=== PATIENT | female | born 1945 | race Caucasian/White ===

== ENCOUNTER → 2016-06-15 | Outpatient (CLI) | payer MEDICARE | LOC: GMAL 11:32 | PROVIDERS: ATTEND Family Medicine | DX: E83.49 Other disorders of magnesium metabolism (principal) ==

== ENCOUNTER → 2016-12-20 | Outpatient (CLI) | payer MEDICARE | END | disposition home or self-care (01) | LOC: GMAL 10:44 | PROVIDERS: ATTEND Family Medicine | DX: D51.3 Other dietary vitamin B12 deficiency anemia (principal); E03.9 Hypothyroidism, unspecified; E55.9 Vitamin D deficiency, unspecified ==

== ENCOUNTER 2017-04-23 11:31 | Emergency (ER) | payer MEDICARE ==
[2017-04-23] MEDS ORDERED: SODIUM CHLORIDE 0.9% (FLUSH) 10 ML SYG IV PRN (11:40)
[2017-04-23] MEDS ORDERED: ASPIRIN TABLET 325 MG TAB PO ONE (11:40)
[2017-04-23] MEDS ORDERED: ASPIRIN (CHEWABLE) 81 MG TAB PO ONE (11:42)
--- NOTE | 2017-04-23 12:19 | ED.PDOC ---
History of Present Illness - General Chief Complaint: Chest Pain/LA Stated Complaint: chest pain Time Seen by Provider: 04/23/17 11:40 Source: patient Exam Limitations: no limitations - History of Present Illness Initial Comments: Lashae Churchill 71 y/o female Brought by POV to er with both upper extremities been achy since yesterday then today with dull ache left side chest and neck tightness.Stated was on her computer this morning checking [employer] and also under lots of stress with who has AD.Has pacemaker 1 1/2 years ago put in for syncopal episode. Timing/Duration: 4-6 hours Severity: moderate Location: other - left side Activities at Onset: rest Prior Chest Pain/Cardiac Workup: no prior chest pain, echocardiography Improving Factors: nothing Worsening Factors: nothing Nitro Today/Relief: 0.4 mg x 1, provided by ED Aspirin Treatment Today: 81 mg x 4, provided by ED Associated Symptoms: other - see hpi Allergies/Adverse Reactions: Allergies NO KNOWN ALLERGY Allergy (Verified 04/23/17 11:57) Home Medications: Ambulatory Orders Aspirin 81 mg PO DAILY #0 03/31/13 Isosorbide Dinitrate 20 mg PO BID #0 03/31/13 Potassium Chloride [K-Tab] 20 meq PO .AM 07/30/15 Levothyroxine Sodium [Synthroid] 0.125 mg PO DAILY #30 tab 07/31/15 Amlodipine Besylate-Benazepril [Lotrel 5-10 mg] 1 cap PO DAILY 08/15/15 Potassium Chloride [K-Tab] 10 meq PO NOON 08/15/15 Potassium Chloride [K-Tab] 20 meq PO BEDTIME 08/15/15 Bisoprolol Fumarate [Zebeta] 2.5 mg PO DAILY 04/23/17 Gabapentin 100 mg PO BID 04/23/17 Nitroglycerin 0.4 mg Tab [Nitrostat] 0.4 mg SL .Q5M PRN #1 bttl 04/23/17 Triamterene & Hydrochlorothiaz [Triamterene/Hydrochloroth 75-50 mg] 1 tab PO DAILY 04/23/17 Review of Systems - Review of Systems Constitutional: States: no symptoms reported EENTM: States: no symptoms reported Respiratory: States: no symptoms reported Cardiology: States: see HPI Gastrointestinal/Abdominal: States: no symptoms reported Genitourinary: States: no symptoms reported Musculoskeletal: States: no symptoms reported Skin: States: no symptoms reported Past Medical History (General) - Patient Medical History Hx Seizures: No Hx Stroke: No Hx Asthma: No Hx of COPD: No Hx Cardiac Disorders: Yes - angina Hx Congestive Heart Failure: No Hx Pacemaker: Yes Hx Hypertension: Yes Hx Thyroid Disease: Yes Hx Diabetes: No Hx MRSA: No Surgical History: pacemaker - Vaccination History Hx Tetanus, Diphtheria Vaccination: No Hx Influenza Vaccination: Yes Hx Pneumococcal Vaccination: No - Social History Hx Tobacco Use: No Hx Alcohol Use: Yes - wine Hx Substance Use: No Hx Substance Use Treatment: No Hx Depression: No Hx Physical Abuse: No Hx Emotional Abuse: No Hx Suspected Abuse: No - Activities of Daily Living Grooming Ability: Independent Eating (Feeding) Ability: Independent Toileting Ability: Independent - Female History Patient is a Female of Child Bearing Age (10 -59 yrs old): No Family Medical History - Family History Mother Family History: Unknown Living Status: Unknown Hx Cardiac Disease: Yes - dad Hx Family Cancer: Yes - larynx-mom Physical Exam - Physical Exam General Appearance: Alert, Comfortable, No apparent distress Eyes, Ears, Nose, Throat Exam: PERRL/EOMI, normal ENT inspection Neck: non-tender, full range of motion, supple Respiratory: chest non-tender, lungs clear, normal breath sounds Cardiovascular/Chest: normal peripheral pulses, regular rate, rhythm, no murmur Peripheral Pulses: radial,right: 2+, radial,left: 2+ Gastrointestinal/Abdominal: normal bowel sounds, non tender, soft, no organomegaly Extremity: no pedal edema, no calf tenderness Neurologic: alert, normal mood/affect, oriented x 3 Skin Exam: normal color, warm/dry Lymphatic: no adenopathy Progress - Progress Progress: 04/23/17 13:20 Vital Signs - 8 hr 04/23/17 04/23/17 04/23/17 11:35 12:15 12:56 Temperature 98.7 F 97.6 F Pulse Rate [ 68 64 68 pulse ox] Respiratory 20 16 16 Rate Blood Pressure 122/89 120/78 121/78 [Right Arm] O2 Sat by Pulse 98 95 95 Oximetry 04/23/17 14:26 Laboratory Tests 04/23/17 04/23/17 04/23/17 11:42 11:46 13:18 WBC 7.6 RBC 5.17 Hgb 15.0 Hct 45.1 MCV 87.2 MCH 29.1 MCHC 33.4 RDW 13.5 Plt Count 174 MPV 9.4 Absolute Neuts (auto) 5.10 Absolute Lymphs (auto) 1.80 Absolute Monos (auto) 0.60 Absolute Eos (auto) 0.10 Absolute Basos (auto) 0.10 Neutrophils % 66.3 Lymphocytes % 23.7 Monocytes % 7.6 Eosinophils % 1.6 Basophils % 0.8 PT 10.6 INR 0.940 PTT (SP) 33.7 D-Dimer, Quantitative < 200 Sodium 137 Potassium 3.5 L Chloride 101 Carbon Dioxide 26 Anion Gap 13.5 BUN 11 Creatinine 0.83 BUN/Creatinine Ratio 13.3 Random Glucose 123 H Serum Osmolality 274.6 L Calcium 9.4 Magnesium 2.0 Total Bilirubin 0.6 Direct Bilirubin < 0.1 Indirect Bilirubin 0.5 AST 22 ALT 20 Alkaline Phosphatase 71 Creatine Kinase 98 CK-MB (CK-2) 3.5 CK-MB (CK-2) % Not Reportable Troponin I < 0.02 < 0.02 B-Natriuretic Peptide 16.2 Serum Total Protein 7.7 Albumin 4.5 04/23/17 14:28 Chest pain free recommend hospital obs stated she lives close to hospital with son living across her house wants to go home and ff up with md 04/23/17 14:33 Relayed result of cardiac enzyme test initially negative x 2 - EKG/XRAY/CT EKG: Sinus Comments: HR- 72;bifascicular block XRAY: chest - mild cardiomegaly,tortous aorta;lungs clear Departure - Departure Clinical Impression: Chest pain Qualifiers: Chest pain type: unspecified Qualified Code(s): R07.9 - Chest pain, unspecified Time of Disposition: 14:30 Disposition: Discharge to Home or Self Care Condition: Fair Departure Forms: ED Discharge - Pt. Copy, Patient Portal Self Enrollment Instructions: DI for Chest Pain Referrals: Tristan Vargas III, MD [Primary Care Provider] - 1-2 Weeks Prescriptions: Nitroglycerin 0.4 mg Tab [Nitrostat] 0.4 mg SL .Q5M PRN #1 bttl PRN Reason: Chest Pain Home Medications: Ambulatory Orders Aspirin 81 mg PO DAILY #0 03/31/13 Isosorbide Dinitrate 20 mg PO BID #0 03/31/13 Potassium Chloride [K-Tab] 20 meq PO .AM 07/30/15 Levothyroxine Sodium [Synthroid] 0.125 mg PO DAILY #30 tab 07/31/15 Amlodipine Besylate-Benazepril [Lotrel 5-10 mg] 1 cap PO DAILY 08/15/15 Potassium Chloride [K-Tab] 10 meq PO NOON 08/15/15 Potassium Chloride [K-Tab] 20 meq PO BEDTIME 08/15/15 Bisoprolol Fumarate [Zebeta] 2.5 mg PO DAILY 04/23/17 Gabapentin 100 mg PO BID 04/23/17 Nitroglycerin 0.4 mg Tab [Nitrostat] 0.4 mg SL .Q5M PRN #1 bttl 04/23/17 Triamterene & Hydrochlorothiaz [Triamterene/Hydrochloroth 75-50 mg] 1 tab PO DAILY 04/23/17 Additional Instructions: RETURN TO EMERGENCY ROOM NEEDED;Follow up with primary md for referral to modeling agency manager as needed;Continue with all home medications
--- NOTE | 2017-04-23 12:31 | RAD ---
Study: Single Frontal View of the Chest. Indication:chest pain Comparison: August 16, 2015. Impression: New dual lead right pacemaker. Mild cardiomegaly. Thoracic aorta tortuous. Lungs hyperexpanded but clear. Osteopenia. If this is a new finding, DEXA scan recommended as well as evaluation for possible osteoporosis treatment. Electronically signed by: Valentín Stone MD 04/23/2017 12:30 PM [facility]
[2017-04-23 12:57] VITALS: TEMP 97.6
[2017-04-23 14:51] VITALS: BP 118/72; O2SAT 96
== END 2017-04-23 14:50 | disposition home or self-care (01) ==
LOC: ER 11:31
DX: R07.9 Chest pain, unspecified (principal); I45.2 Bifascicular block; I10 Essential (primary) hypertension; E07.9 Disorder of thyroid, unspecified; Z95.0 Presence of cardiac pacemaker; Z79.82 Long term (current) use of aspirin; Z79.899 Other long term (current) drug therapy

== ENCOUNTER → 2017-06-19 | Outpatient (CLI) | payer MEDICARE | END | disposition home or self-care (01) | LOC: GMAL 10:46 | PROVIDERS: ATTEND Family Medicine | DX: D51.3 Other dietary vitamin B12 deficiency anemia (principal) ==

== ENCOUNTER → 2017-12-05 | Outpatient (CLI) | payer MEDICARE ==
--- NOTE | 2017-12-05 08:55 | RAD ---
EXAM DESCRIPTION: Pelvis CLINICAL HISTORY: 72 years Female, HIP PAIN LEFT COMPARISON: None. FINDINGS: Single view of the pelvis demonstrates the bony pelvic ring intact hypertrophic changes at the acetabular margins, left greater than right consistent with modest hip arthropathy again left greater than right is apparent. Subcortical cystic changes particularly involving the left hip and likely a more significantly in the acetabula of the femoral head is noted. If symptoms persist consider MRI of the left hip evaluate for osteonecrosis without femoral head collapse or other arthritic processes. No fracture or dislocation is seen. The pubic arches and the ischio tuberosities are intact. IMPRESSION: Bilateral hip degenerative arthropathy and hypertrophic acetabular osteophytes, left greater than right. Electronically signed by: Emmanuel Patricio MD 12/05/2017 8:54 AM CDT
== END ==
LOC: RAD 08:09
PROVIDERS: ATTEND Orthopaedic Surgery
DX: Z01.818 Encounter for other preprocedural examination (principal); M25.552 Pain in left hip; M13.851 Other specified arthritis, right hip; M13.852 Other specified arthritis, left hip

== ENCOUNTER → 2017-12-06 | Outpatient (CLI) | payer MEDICARE | LOC: GMAB 11:46 | PROVIDERS: ATTEND Family Medicine | DX: Z01.818 Encounter for other preprocedural examination (principal); R30.0 Dysuria; E03.9 Hypothyroidism, unspecified; Z79.899 Other long term (current) drug therapy ==

== ENCOUNTER → 2017-12-14 | Outpatient (CLI) | payer MEDICARE | LOC: GMAL 10:58 | PROVIDERS: ATTEND Family Medicine | DX: R25.8 Other abnormal involuntary movements (principal) ==

== ENCOUNTER 2018-01-01 05:47 | Day surgery (SDC) | payer MEDICARE ==
--- NOTE | 2017-12-21 09:25 | HP ---
CHIEF COMPLAINT: Left knee pain. HISTORY OF PRESENT ILLNESS: Ms. Churchill is a 72-year-old female with a history of knee pain. The knee pain has been associated with mechanical symptoms to include locking and popping. She has had no trauma related to the onset of this , denies any radiation of pain and denies any neurologic symptoms. She has had injections, however, have failed to give her relief. Because of her failure of relief and mechanical symptoms, we have discussed options. She does have pre- existent arthritis and I talked to her about knee arthroscopy and the fact that given her mechanical symptoms, this may help, however, will not change her baseline arthritis. She expressed understanding of that. After discussing the risks, benefits and alternatives to that, the patient has given informed consent. PAST SURGICAL HISTORY: 1. Thyroidectomy. 2. section. 3. Pacemaker placement. 4. Foot surgery. MEDICATIONS: 1. Amlodipine. 2. Benazepril. 3. Potassium. 4. Isosorbide. 5. Bisoprolol. 6. Levothyroxine. 7. Triamterene. 8. Hydrochlorothiazide. 9. Singulair. 10. Xanax. ALLERGIES: NO KNOWN DRUG ALLERGIES. CODE STATUS: DNR. IMMUNIZATIONS: Up to date. FAMILY HISTORY: None pertinent to today's complaint. SOCIAL HISTORY: The patient does not smoke or use any illicit drugs. She does drink on occasion. REVIEW OF SYSTEMS: Negative except as indicated in the History of Present Illness. PHYSICAL EXAMINATION: VITAL SIGNS: Blood pressure 125/81. Pulse 87. Height 5'5". Weight 138 pounds. MENTAL STATUS: The patient is awake, alert, and is able to give a good history and participate in the physical. The patient is oriented to person, place and time. SKIN: Normal tone and turgor. MUSCULOSKELETAL: She is very tender to palpation along the medial aspect of the knee and also with patellar mobilization. She has popping with flexion and extension and some crepitus. She has no varus/valgus or anterior/posterior laxity. She does have mild effusion today. The extremity is warm and well perfused. Today, she lacks a couple of degrees of extension although flexion is to about 130 degrees. Strength is 5/5 throughout. IMAGING: X-rays do show arthritic changes. There does not appear to be any acute bony abnormality. There may be a couple of loose bodies in the medial compartment. ASSESSMENT: 1. Meniscus tear with mechanical symptoms. 2. Loose bodies in the knee. 3. Osteoarthritis. PLAN: The plan at this point is for knee arthroscopy. We have discussed the risks, benefits, and alternatives to that and the patient has given informed consent. #[id number] [facility]
[2018-01-01] MEDS ORDERED: SODIUM CHL 0.9% 100ML MINI-BAG 100 ML IVPB ONE (05:55)
[2018-01-01] MEDS ORDERED: LACTATED RINGERS 1,000 ML ONE (05:55)
[2018-01-01] MEDS ORDERED: ceFAZolin SODIUM 1 GM VIAL ONE ×3 (05:56→07:48)
[2018-01-01] MEDS ORDERED: BUPIVACAINE 0.25% W/EPI 50 ML VIAL INJ ONE (06:22)
[2018-01-01] MEDS ORDERED: MIDAZOLAM INJ 2 MG/2 ML VIAL ONE (06:48)
[2018-01-01] MEDS ORDERED: MORPHINE SULFATE INJ 10 MG/ML VIAL ONE (06:49)
[2018-01-01] MEDS: VANCOMYCIN HCL INJ 1,000 MG VIAL IVPB ONE ×2 (07:32→07:52)
[2018-01-01] MEDS: ceFAZolin SODIUM 1 GM VIAL ONE ×2 (07:32→07:52)
[2018-01-01 09:26] VITALS: BP 127/81; TEMP 96.8; O2SAT 98
[2018-01-01] MEDS ORDERED: raNITIdine HCL INJ 25 MG/ML VIAL IV ONE (10:00)
[2018-01-01] MEDS ORDERED: PROPOFOL 200 MG/20 ML VIAL IV ONE (10:00)
[2018-01-01] MEDS ORDERED: KETOROLAC TROMETHAMINE INJ 30 MG/ML VIAL IV ONE (10:00)
[2018-01-01] MEDS ORDERED: LIDOCAINE 1% 10 ML VIAL INJ ONE (10:00)
[2018-01-01] MEDS ORDERED: ePHEDrine SULF 50 MG/ML IV ONE (10:00)
[2018-01-01] MEDS ORDERED: DEXAMETHASONE INJ 10 MG/ML VIAL IV ONE (10:00)
--- NOTE | 2018-01-02 08:44 | OP ---
DATE OF PROCEDURE: 01/01/18 PREOPERATIVE DIAGNOSIS: 1. Knee pain. 2. Arthritis. 3. Meniscus tear. 4. Loose body. POSTOPERATIVE DIAGNOSIS: 1. Advanced arthritis. 2. Multiple loose bodies. 3. Meniscal tearing. 4. Knee pain. PROCEDURE: 1. Removal of loose bodies. 2. Debridement. 3. Partial meniscectomy. SURGEON: Mazin Rosenbaum MD. VISCOSE DEPARTMENT WORKER: Sandro Cuellar CST, SA-C. ANESTHESIA: General anesthesia. COMPLICATIONS: None. FINDINGS: 1. Advanced arthritis of the medial compartment. 2. Degenerative tearing the medial meniscus. 3. Several loose bodies in the medial compartment. 4. Normal anterior cruciate ligament. 5. Normal posterior cruciate ligament. 6. Advanced degenerative changes in the lateral compartment. 7. Degenerative fraying of the lateral meniscus. 8. Normal lateral gutter. 9. Normal suprapatellar pouch. 10. Advanced degenerative arthritis of the patellofemoral joint. 11. Normal medial gutter. INDICATION: Ms. Churchill has a long history of pain in the knee with some associated mechanical symptoms. She has tried conservative measures, however, has failed to gain relief. She and I did discuss the potential of benefit from this procedure despite having findings of arthritis on x-ray. Given the mechanical symptoms, we decided it would be reasonable to proceed with arthroscopy. After discussing the risks, benefits and alternatives to that, the patient has given informed consent for arthroscopy. PROCEDURE: The patient was brought to the Operating Room and placed in supine position. General anesthesia was induced and the patient's leg was sterilely prepped and draped. Following prepping and draping, anteromedial and anterolateral portals were established. Diagnostic arthroscopy was carried out with the above findings. Attention was focused on the medial compartment. The degenerative tear in the meniscus was debrided as were the chondral surfaces to stable base. The loose bodies noted above were removed. The knee was thoroughly irrigated and drained. Following draining of the knee, the wounds were closed with Nylon suture. Sterile dressings were placed. The patient was awoken from anesthesia and taken to Recovery. POSTOPERATIVE PLAN: The patient will be partial weightbearing and will followup with us in approximately two days. #[id number] [facility]
== END 2018-01-01 09:20 | disposition home or self-care (01) ==
LOC: AMB 05:47
PROVIDERS: ATTEND Orthopaedic Surgery
DX: M23.204 Derangement of unspecified medial meniscus due to old tear or injury, left knee (principal); M23.201 Derangement of unspecified lateral meniscus due to old tear or injury, left knee; M23.42 Loose body in knee, left knee; E89.0 Postprocedural hypothyroidism; I10 Essential (primary) hypertension; Z95.0 Presence of cardiac pacemaker; Z79.82 Long term (current) use of aspirin; Z79.899 Other long term (current) drug therapy
CPT/HCPCS: 01400; 29881; J0690; J1100; J1885; J2250; J2270; J2780; J3370; J3490; J7050; J7120

== ENCOUNTER 2018-05-27 07:02 | Emergency (ER) | payer MEDICARE ==
[2018-05-27 07:26] VITALS: TEMP 97.5
--- NOTE | 2018-05-27 08:12 | ED.PDOC ---
History of Present Illness - General Chief Complaint: General Stated Complaint: no pain, but generally stressed Time Seen by Provider: 05/27/18 08:07 Source: patient Exam Limitations: no limitations - History of Present Illness Initial Comments: C/O DISCOMFORT IN CHEST. WOKE UP WITH PRESSURE SENSATION. STATES SHE JUST "DOESN'T FEEL RIGHT." HAD ONE EPISODE OF ELEVATED BLOOD PRESSURE. NO OTHER ASSOCIATED SYMPTOMS. Timing/Duration: 4-6 hours Severity: mild Improving Factors: nothing Worsening Factors: nothing Associated Symptoms: denies symptoms Allergies/Adverse Reactions: Allergies NO KNOWN ALLERGY Allergy (Verified 04/23/17 11:57) Home Medications: Ambulatory Orders Aspirin 81 mg PO DAILY #0 03/31/13 Isosorbide Dinitrate 20 mg PO BID #0 03/31/13 Potassium Chloride [K-Tab] 30 meq PO .AM 07/30/15 Levothyroxine Sodium [Synthroid] 0.125 mg PO DAILY #30 tab 07/31/15 Amlodipine Besylate-Benazepril [Lotrel 5-10 mg] 1 cap PO DAILY 08/15/15 Potassium Chloride [K-Tab] 30 meq PO BEDTIME 08/15/15 Bisoprolol Fumarate [Zebeta] 2.5 mg PO DAILY 04/23/17 Triamterene & Hydrochlorothiaz [Triamterene/Hydrochloroth 75-50 mg] 1 tab PO DAILY 04/23/17 Review of Systems - Review of Systems Constitutional: Denies: chills, fever EENTM: States: no symptoms reported Respiratory: Denies: cough, short of breath Cardiology: States: chest pain. Denies: palpitations, syncope Gastrointestinal/Abdominal: Denies: abdominal pain, nausea, vomiting Genitourinary: States: no symptoms reported Musculoskeletal: Denies: back pain, neck pain Skin: States: no symptoms reported Neurological: States: no symptoms reported Endocrine: States: no symptoms reported Hematologic/Lymphatic: States: no symptoms reported Past Medical History (General) - Patient Medical History Hx Seizures: No Hx Stroke: No Hx Asthma: No Hx of COPD: No Hx Cardiac Disorders: Yes - angina Hx Congestive Heart Failure: No Hx Pacemaker: Yes Hx Hypertension: Yes Hx Thyroid Disease: Yes Hx Diabetes: No Hx MRSA: No Surgical History: appendectomy, other - Vaccination History Hx Tetanus, Diphtheria Vaccination: No Hx Influenza Vaccination: Yes Hx Pneumococcal Vaccination: No - Social History Hx Tobacco Use: No Hx Alcohol Use: Yes - wine Hx Substance Use: No Hx Substance Use Treatment: No Hx Depression: No Hx Physical Abuse: No Hx Emotional Abuse: No Hx Suspected Abuse: No Family Medical History - Family History Mother Family History: Unknown Living Status: Unknown Hx Cardiac Disease: Yes - dad Hx Family Cancer: Yes - larynx-mom Physical Exam - Physical Exam General Appearance: Alert, No apparent distress Eye Exam: bilateral normal Ears, Nose, Throat: hearing grossly normal, normal ENT inspection Neck: non-tender, full range of motion, supple Respiratory: lungs clear, normal breath sounds Cardiovascular/Chest: regular rate, rhythm, no murmur Gastrointestinal/Abdominal: normal bowel sounds, non tender, soft, no organomegaly Back Exam: normal inspection, no vertebral tenderness Extremity: normal range of motion, non-tender, normal inspection Neurologic: alert, normal mood/affect Skin Exam: normal color Lymphatic: no adenopathy Progress - Progress Progress: 05/27/18 08:37 PT NOT C/O CHEST PAIN AT THIS POINT IS C/O SHOULDERS "NOT FEELING RIGHT" BILATERALLY. DENIES ANY KNOWN INJURY, NECK NTTP, FREE ROM, HAD TTP VIJAYA IN THE SHOULDERS, GOOD ROM, NO DEFORMITY, NO CLAVICULAR TTP. WILL GET XRAYS AND C SPINE. 05/27/18 09:47 PT WITH C6-7 STENOSIS, UE STRENGTH 5/5, SENS INTACT AND REFLEXES ARE NL AND SYMMETRIC. NO FURTHER CP BUT STILL C/O SHOULDER PAIN. DISCUSSED FINDINGS WITH PT AND TX OPTIONS. LOW PROBABILITY OF NSTEMI OR ANGINA. NO SX'S OF CENTRAL CORD SYNDROME. WITH TENDERNESS OVER SHOULDER AND WITH ROM SUSPECT BURSITIS WITH POSS REFLUX. NO CP CURRENTLY AND DID NOT TAKE NTG. HAS BEEN PRIMARILY FOCUSED ON DAVID ULDER PAIN SINCE ARRIVAL. OFFERED TO OBSERVE X 2 HOURS AND REPEAT TROP BUT PT WOULD LIKE TO GO HOME. SHE HAS AGREED TO COME BACK IF PROBLEMS DEVELOP. HAS CARDIOLOGY APPT NEXT WEEK. - EKG/XRAY/CT EKG: Sinus - RATE 70. LAD, , RBBB, nonspecific ST T wave Chg - NAIP, , Unchanged from - 04/22/17 Departure - Departure Clinical Impression: Bursitis Qualifiers: Bursitis location: shoulder Laterality: bilateral Qualified Code(s): M75.51 - Bursitis of right shoulder; M75.52 - Bursitis of left shoulder Hypertension Qualifiers: Hypertension type: essential hypertension Qualified Code(s): I10 - Essential (primary) hypertension ICD-10 Supporting Text: DDX: MUSCULO-SKELETAL PAIN Time of Disposition: 09:53 Disposition: Discharge to Home or Self Care Condition: Fair Departure Forms: ED Discharge - Pt. Copy, Patient Portal Self Enrollment Instructions: Bursitis Referrals: Tristan Vargas III, MD [Primary Care Provider] - 1-2 Weeks Home Medications: Ambulatory Orders Aspirin 81 mg PO DAILY #0 03/31/13 Isosorbide Dinitrate 20 mg PO BID #0 03/31/13 Potassium Chloride [K-Tab] 30 meq PO .AM 07/30/15 Levothyroxine Sodium [Synthroid] 0.125 mg PO DAILY #30 tab 07/31/15 Amlodipine Besylate-Benazepril [Lotrel 5-10 mg] 1 cap PO DAILY 08/15/15 Potassium Chloride [K-Tab] 30 meq PO BEDTIME 08/15/15 Bisoprolol Fumarate [Zebeta] 2.5 mg PO DAILY 04/23/17 Triamterene & Hydrochlorothiaz [Triamterene/Hydrochloroth 75-50 mg] 1 tab PO DAILY 04/23/17 Additional Instructions: MAY TAKE ADVIL OR MOTRIN AT 5PM. MAY TAKE TRAMADOL FOR PAIN IF NEEDED.
--- NOTE | 2018-05-27 08:21 | RAD ---
EXAM DESCRIPTION: Chest,1 View CLINICAL HISTORY: 72 years Female, cp COMPARISON: Previous study April 23, 2017 TECHNIQUE: AP portable chest. FINDINGS: Heart size is large with mildly increased pulmonary vascularity. Cardiac pacer is in place. No consolidating infiltrate. No pulmonary mass or worrisome nodule. No pneumothorax or pleural effusion. Bones are unremarkable. IMPRESSION: No acute process is identified in the chest. Electronically signed by: Rj Vora MD 05/27/2018 8:20 AM [facility]
[2018-05-27] MEDS ORDERED: KETOROLAC TROMETHAMINE INJ 30 MG/ML VIAL IV ONE (08:36)
--- NOTE | 2018-05-27 09:08 | CT ---
EXAM DESCRIPTION: Cervical Spine CLINICAL HISTORY: VIJAYA ARM PAIN AFTER TRIPPING OVER LADDER COMPARISON: None Available. TECHNIQUE: Cervical CT is performed with thin-section axial imaging. MPRs are created and reviewed as well. FINDINGS: Axial bone window images reveal intact ring of C1. No abnormal widening of the atlantodens interval. No fracture of the vertebral bodies or transverse processes or posterior elements. Lung apices appear clear. No cervical mass or adenopathy. Sagittal reformatted images show normal alignment of vertebral bodies and facets. No jumped facet or facet fracture. Normal craniocervical alignment. No prevertebral soft tissue swelling. No avulsion of the spinous processes. Spondylosis: Facet degenerative changes are severe on the left at C3-4 and C4-5 levels. Advanced degenerative disc disease is seen at C5-6 and C6-7 with prominent posterior disc/osteophyte complexes. C6-7 chronic calcified midline and left paracentral disc herniation narrows the AP diameter the spinal canal to approximately 9 mm. There is mild to moderate neural foraminal narrowing bilaterally at C5-6 and C6-7. There is slight reversal of the normal cervical lordosis. Coronal reformatted images show normal atlantooccipital and atlantoaxial alignment. The base of the dens is intact as is the body of C2. Intact lateral masses. IMPRESSION: Negative for fracture or posttraumatic subluxation. Degenerative changes as described. This exam was performed according to our departmental dose-optimization program, which includes automated exposure control, adjustment of the mA and/or kV according to patient size and/or use of iterative reconstruction technique. Total DLP equals 352.18 mGycm. Electronically signed by: Rj Vora MD 05/27/2018 9:07 AM [facility]
--- NOTE | 2018-05-27 09:17 | RAD ---
EXAM DESCRIPTION: Shoulder,Left 2 or More Views CLINICAL HISTORY: 72 years Female, SHOULDER PAIN AFTER TRIPPING OVER LADDER COMPARISON: None. FINDINGS: Two views of the left shoulder show no acute fracture or malalignment. Mild glenohumeral joint space narrowing. Mild degenerative changes are also noted in left AC joint without significant undersurface spurring. A left-sided cardiac pacemaker is partially visualized. IMPRESSION: Mildly distended changes in the left glenohumeral and AC joints. No additional left shoulder abnormality. Electronically signed by: Nikhil Wilson MD 05/27/2018 9:15 AM [facility]
--- NOTE | 2018-05-27 09:17 | RAD ---
EXAM DESCRIPTION: Shoulder,Right 2 or More Views CLINICAL HISTORY: 72 years Female, SHOULDER PAIN AFTER TRIPPING OVER LADDER COMPARISON: None. FINDINGS: Two views of the right shoulder show no acute fracture or malalignment. Mild degenerative changes in the right AC and glenohumeral joints. No soft tissue abnormality. IMPRESSION: Mild degenerative changes, otherwise unremarkable exam. Electronically signed by: Nikhil Wilson MD 05/27/2018 9:16 AM [facility]
[2018-05-27 10:16] VITALS: BP 126/91; O2SAT 97
== END 2018-05-27 10:19 | disposition home or self-care (01) ==
LOC: ER 07:02
DX: I10 Essential (primary) hypertension (principal); M75.52 Bursitis of left shoulder; R07.89 Other chest pain; I45.10 Unspecified right bundle-branch block; M47.812 Spondylosis without myelopathy or radiculopathy, cervical region; M50.323 Other cervical disc degeneration at C6-C7 level; E07.9 Disorder of thyroid, unspecified; Z95.0 Presence of cardiac pacemaker; Z79.82 Long term (current) use of aspirin; Z79.899 Other long term (current) drug therapy
CPT/HCPCS: 36415; 71045; 72125; 73030; 80053; 84484; 85025; 85610; 85730; 93005; J1885

== ENCOUNTER → 2018-07-08 | Outpatient (CLI) | payer MEDICARE ==
--- NOTE | 2018-07-08 15:57 | US ---
EXAM DESCRIPTION: Carotid Duplex: ULTRASOUND. CLINICAL HISTORY: 72 years Female CAROTID BRUIT COMPARISON: Ultrasound duplex carotid 07/30/2015. TECHNIQUE: Transcutaneous scanning utilizing donis-scale and Doppler modes to evaluate the bilateral carotid systems and vertebral arteries. Percentage of diameter of stenosis or no stenosis recorded will be based upon NASCET criteria. FINDINGS: Peak systolic/end diastolic (CM-Sec) CCA Right 59/16 Left 57/21. ICA Right proximal 27/8, distal 74/32. Left proximal 54/22, Distal 63/31. Vertebral Right 37/16 Left 39/18. ECA (PS Only) Right 32 left 43. ICA/CCA peak systolic ratio: Right 1.3 Left 1.1 ICA/CCA end diastolic ratio: Right 2.0 Left 1.5 Vertebral arteries: antegrade flow. Comments: No significant atherosclerotic calcification. Some of the vessels were tortuous. IMPRESSION: 1. Doppler evaluation of the bilateral carotid systems and vertebral arteries shows no hemodynamically significant stenoses. Stable since the prior study. 2. No significant amount of plaque seen in the carotid arteries bilaterally. Bilateral vertebral arteries showed antegrade-cephalad flow. Stable since the prior study. Electronically signed by: Sandro Cueva MD 07/08/2018 3:56 PM [facility]
== END ==
LOC: US 11:05
PROVIDERS: ATTEND Family Medicine
DX: I65.23 Occlusion and stenosis of bilateral carotid arteries (principal)

== ENCOUNTER → 2018-07-10 | Outpatient (CLI) | payer MEDICARE ==
--- NOTE | 2018-07-10 08:14 | CT ---
EXAM DESCRIPTION: Head w/wo Contrast CLINICAL HISTORY: HEADACHE COMPARISON: Previous head CT August 06, 2015 TECHNIQUE: CT brain is performed prior to and following IV administration of routine adult dose of nonionic iodinated contrast. FINDINGS: Ventricles and sulci are unremarkable on precontrast images. There is no hemorrhage or mass. Low density areas in the cerebral white matter are similar to previous study consistent with chronic microvascular ischemic changes. The calvarium is unremarkable. The visualized paranasal sinuses and the mastoids are clear. After IV contrast, there is normal enhancement of intracranial vessels. Normal donis-white matter differentiation. No enhancing intracranial mass lesion or abnormal enhancement of the brain parenchyma. Normal enhancement of the dural sinuses. Coronal and sagittal reformatted images confirm the findings. IMPRESSION: Chronic microvascular ischemic changes in the cerebral white matter. No acute intracranial pathologic process. This exam was performed according to our departmental dose-optimization program, which includes automated exposure control, adjustment of the mA and/or kV according to patient size and/or use of iterative reconstruction technique. Electronically signed by: Rj Vora MD 07/10/2018 8:13 AM [facility]
== END ==
LOC: CT 08:00
PROVIDERS: ATTEND Family Medicine
DX: G44.209 Tension-type headache, unspecified, not intractable (principal)

== ENCOUNTER → 2020-02-23 | Outpatient (CLI) | payer MEDICARE | LOC: GMAL 11:34 | PROVIDERS: ATTEND Family Medicine | DX: D51.3 Other dietary vitamin B12 deficiency anemia (principal); E03.9 Hypothyroidism, unspecified; E55.9 Vitamin D deficiency, unspecified; I10 Essential (primary) hypertension; Z79.899 Other long term (current) drug therapy; E78.2 Mixed hyperlipidemia ==

== ENCOUNTER → 2020-03-08 | Outpatient (CLI) | payer MEDICARE ==
--- NOTE | 2020-03-09 16:57 | MAM ---
EXAM DESCRIPTION: 3D Screening BILATERAL : Digital Mammography. CLINICAL HISTORY: 74 years Female ANNUAL SCREENING . No complaints. No personal or family history of breast cancer. Menarche age 13. Childbirth age 28. Menopause age 60. HRT 5 or more years ago. Lifetime risk of developing breast cancer (Tyrer-Cuzick model)(%): 5.6. COMPARISON: Baseline study at this facility.. No prior reports available. TECHNIQUE: Bilateral CC and MLO projection full-field images, digital tomosynthesis mammographic technique. Bilateral digital 2-D full-field MLO images. CAD available for 2-D images. FINDINGS: The breast parenchymal density pattern is: Heterogeneously dense breast tissue, which may obscure small masses. No skin thickening or nipple retraction. Right axillary nodes. Solitary microcalcifications. No focal, stellate mass or density, focal asymmetry , and no suspicious microcalcifications bilateral breasts. IMPRESSION: Benign exam. BIRAD CATEGORY: 2 BENIGN FINDINGS. RECOMMENDATIONS: FOLLOW UP: Routine digital bilateral mammographic screening, one year interval from February 2020. Written communication explaining the IMPRESSION and follow-up, will be mailed to the patient and referring health care provider. According to the [employer], yearly mammograms are recommended starting at age 40 and continuing as long as a woman is in good health. Any breast change noted on a breast self-exam should be reported promptly to the patient's healthcare provider. Breast MRI is recommended for women with an approximately 20-25% or greater lifetime risk of breast cancer, including women with a strong family history of breast or ovarian cancer and women who have been treated for Hodgkin's disease. A negative mammographic report should not delay tissue diagnosis in patients with significant clinical history or physical findings. Extremely dense breast tissue limits the sensitivity of digital mammography. Electronically signed by: Sandro Cueva MD 03/09/2020 4:55 PM CDT
== END ==
LOC: MAMMO 09:51
PROVIDERS: ATTEND Family Medicine
DX: Z12.31 Encounter for screening mammogram for malignant neoplasm of breast (principal)

== ENCOUNTER 2020-04-23 07:05 | Emergency (ER) | payer MEDICARE ==
[2020-04-23] MEDS ORDERED: cloNIDine HCL 0.1 MG TAB PO ONE (07:28)
--- NOTE | 2020-04-23 07:33 | ED.PDOC ---
History of Present Illness - General Chief Complaint: Blood Pressure Problem Stated Complaint: HTN, L neck pain and intermittent CP Time Seen by Provider: 04/23/20 07:19 Additional Information: Patient is a 74-year-old female who presents to the emergency department with chief complaint of hypertension. Patient has history of longstanding hypertension and is being treated by her doctor. She tells me her typical blood pressure is "normal", but this morning she awoke and her diastolic was in the 90s. She called her doctor who told her to take an Ativan because she has considerable stress in her life and she rechecked her blood pressure and her diastolic was 100 and so she came to the emergency department for evaluation. Patient denies vignesh chest pain but says she has focal intermittent pain at the left sternal border which she believes is from increased activity with gardening this past week. Patient denies nausea, vomiting, fever, chills, shortness of breath, cough. Patient is otherwise asymptomatic. - History of Present Illness Allergies/Adverse Reactions: Allergies NO KNOWN ALLERGY Allergy (Verified 04/23/20 07:31) Home Medications: Ambulatory Orders Aspirin 81 mg PO DAILY #0 03/31/13 Amlodipine Besylate-Benazepril [Lotrel 5-10 mg] 1 cap PO DAILY 08/15/15 Bisoprolol Fumarate [Zebeta] 2.5 mg PO DAILY 04/23/17 Alprazolam 0.25 mg PO BID 04/23/20 Cholecalciferol [D3 High Potency] 5,000 unit PO DAILY 04/23/20 Cyanocobalamin [B-12] 1,000 mcg PO DAILY 04/23/20 Escitalopram [Lexapro] 10 mg PO DAILY 04/23/20 Levothyroxine Sodium [Tirosint-Hodan] 125 mcg PO DAILY 04/23/20 Potassium Chloride [Potassium Chloride ER] 10 meq PO DAILY 04/23/20 Review of Systems - Review of Systems Constitutional: States: no symptoms reported. Denies: chills, fever EENTM: States: no symptoms reported Respiratory: States: no symptoms reported. Denies: cough, orthopnea, short of breath Cardiology: States: see HPI, chest pain. Denies: edema, palpitations Gastrointestinal/Abdominal: States: no symptoms reported. Denies: abdominal pain, nausea, vomiting Genitourinary: States: no symptoms reported Musculoskeletal: States: no symptoms reported Skin: States: no symptoms reported All other Systems: Reviewed and Negative Past Medical History (General) - Patient Medical History Hx Seizures: No Hx Stroke: No Hx Asthma: No Hx of COPD: No Hx Cardiac Disorders: Yes - angina Hx Congestive Heart Failure: No Hx Pacemaker: Yes Hx Hypertension: Yes Hx Thyroid Disease: Yes Hx Diabetes: No Hx MRSA: No - Vaccination History Hx Tetanus, Diphtheria Vaccination: No Hx Influenza Vaccination: Yes Hx Pneumococcal Vaccination: No - Social History Hx Tobacco Use: No Hx Alcohol Use: Yes - wine Hx Substance Use: No Hx Substance Use Treatment: No Hx Depression: No Hx Physical Abuse: No Hx Emotional Abuse: No Hx Suspected Abuse: No Family Medical History - Family History Mother Family History: Unknown Living Status: Unknown Hx Cardiac Disease: Yes - dad Hx Family Cancer: Yes - larynx-mom Physical Exam - Physical Exam General Appearance: Comfortable, No apparent distress, Well Developed, Well Nourished Eyes, Ears, Nose, Throat Exam: PERRL/EOMI, normal ENT inspection Neck: supple, normal inspection Respiratory: chest non-tender, lungs clear, normal breath sounds, no respiratory distress, no accessory muscle use Cardiovascular/Chest: normal peripheral pulses, regular rate, rhythm, no edema, no gallop, no JVD, no murmur Peripheral Pulses: radial,right: 2+, radial,left: 2+ Gastrointestinal/Abdominal: normal bowel sounds, non tender, soft Extremity: normal range of motion, non-tender, normal inspection, no pedal edema 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 04/23/20 07:35 EKG: Normal sinus rhythm, rate 64, LAD, wide QRS, RBBB, normal ST segment, T wave inversion consistent with RBBB, negative STEMI. 04/23/20 09:01 Patient reexamined. Her blood pressure is down nicely to a systolic of 111. Patient's EKG is unchanged from baseline, April 2017. Patient's chest x-ray today suggests cardiomegaly with pulmonary vascular congestion but this does not clinically correlate. Patient has no shortness of breath and she is readily laying flat in the bed with no evidence of CHF. Further she has no peripheral edema. I discussed with patient that if her blood pressure continues to remain elevated with systolic above 160 then she should take 2 of her Lotrel tablets. We discussed that patient is a low risk HEART score and that she is safe for follow-up with her senior product development manager within the week for evaluation of her recurrent chest discomfort. Patient presently is asymptomatic and has no chest pain. Vital signs stable, patient is NAD and looks clinically well and I believe is safe for discharge with outpatient follow-up. Follow-up instructions, discharge instructions and return to ED precautions discussed with patient. Patient voices understanding and willingness to comply with instructions. All laboratory and radiographic results have been discussed with the patient, and all questions answered. Patient is happy with plan. Departure - Departure Clinical Impression: Moderate hypertension Chest pain Qualifiers: Chest pain type: unspecified Qualified Code(s): R07.9 - Chest pain, unspecified Time of Disposition: 09:05 Disposition: Discharge to Home or Self Care Condition: Fair Departure Forms: ED Discharge - Pt. Copy, Patient Portal Self Enrollment Instructions: DI for High Blood Pressure Referrals: Tristan Vargas III, MD [Primary Care Provider] - 1-5 Days Home Medications: Ambulatory Orders Aspirin 81 mg PO DAILY #0 03/31/13 Amlodipine Besylate-Benazepril [Lotrel 5-10 mg] 1 cap PO DAILY 08/15/15 Bisoprolol Fumarate [Zebeta] 2.5 mg PO DAILY 04/23/17 Alprazolam 0.25 mg PO BID 04/23/20 Cholecalciferol [D3 High Potency] 5,000 unit PO DAILY 04/23/20 Cyanocobalamin [B-12] 1,000 mcg PO DAILY 04/23/20 Escitalopram [Lexapro] 10 mg PO DAILY 04/23/20 Levothyroxine Sodium [Tirosint-Hodan] 125 mcg PO DAILY 04/23/20 Potassium Chloride [Potassium Chloride ER] 10 meq PO DAILY 04/23/20 Comments: You may take 2 of your Lotrel 5/10 tablets daily for systolic pressure greater than 160. Please call your senior product development manager, Dr. Mckeon, to schedule reevaluation of your recurrent chest discomfort within the week. Return to the ED if your symptoms worsen.
--- NOTE | 2020-04-23 08:33 | RAD ---
EXAM DESCRIPTION: Chest,1 View CLINICAL HISTORY: 74 years Female, CP COMPARISON: 05/27/2018 Findings: One view(s)/radiograph(s) Left chest wall pacemaker. Cardiomegaly. Slight pulmonary vascular congestion. No pneumothorax. No pleural effusion. No focal consolidation. No acute osseous abnormality. IMPRESSION: Cardiomegaly with slight pulmonary vascular congestion. Electronically signed by: Clarence Ugarte MD 04/23/2020 8:31 AM CREDIT CLERK
[2020-04-23 09:21] VITALS: BP 101/71; TEMP 97.8; O2SAT 96
== END 2020-04-23 09:15 | disposition home or self-care (01) ==
LOC: ER 07:05
DX: R07.9 Chest pain, unspecified (principal); I10 Essential (primary) hypertension; E07.9 Disorder of thyroid, unspecified; Z95.0 Presence of cardiac pacemaker; Z79.82 Long term (current) use of aspirin; Z79.899 Other long term (current) drug therapy

== ENCOUNTER → 2020-04-28 | Outpatient (CLI) | payer MEDICARE | LOC: GMAL 11:53 | PROVIDERS: ATTEND Family Medicine | DX: Z79.899 Other long term (current) drug therapy (principal); E83.49 Other disorders of magnesium metabolism; I20.0 Unstable angina ==

== ENCOUNTER → 2020-06-24 | Outpatient (CLI) | payer MEDICARE ==
--- NOTE | 2020-06-24 14:07 | CT ---
EXAM: Lower Extremity INDICATION: PAIN IN RIGHT KNEE . COMPARISON: None available TECHNIQUE: CT of the right knee was performed without IV contrast. Multiple axial images and multiplanar reconstructions were generated. This exam was performed according to our departmental dose-optimization program, which includes automated exposure control, adjustment of the mA and/or kV according to patient size and/or use of iterative reconstruction technique. FINDINGS: Osteopenia. No fracture is identified. No joint dislocation. No destructive osseous lesion. Tricompartmental degenerative changes in the knee with joint space narrowing and subchondral sclerosis. Degenerative change is severe in the patellofemoral compartment, with [id number] contact of the distal femur and the lateral patellar facet. Associated subchondral cystic change and osteophyte formation. No periosteal reaction is identified. Small suprapatellar joint effusion. Vascular calcifications. Quadriceps tendon enthesophyte noted at the superior patella. IMPRESSION: 1. Tricompartmental degenerative changes in the right knee, severe at the patellofemoral compartment, with a small suprapatellar joint effusion. 2. No fracture or dislocation is identified in the right knee. Electronically signed by: Karis Rodriguez MD 06/24/2020 2:06 PM [facility]
== END ==
LOC: CT 13:29
PROVIDERS: ATTEND Family Medicine
DX: M17.11 Unilateral primary osteoarthritis, right knee (principal); M25.461 Effusion, right knee